=== PATIENT | male | born 1970 | race Caucasian/White ===

== ENCOUNTER → 2019-04-18 | Outpatient (CLI) | payer OTHER | LOC: RESP 19:40 | PROVIDERS: ATTEND Family Medicine | DX: G47.33 Obstructive sleep apnea (adult) (pediatric) (principal) ==

== ENCOUNTER 2019-05-03 11:24 | Emergency (ER) | payer OTHER ==
--- NOTE | 2019-05-03 11:25 | ER Report ---
History and Physical Time Seen By MD: 11:23 HPI/ROS CHIEF COMPLAINT: Dizziness HISTORY OF PRESENT ILLNESS: Patient is a 48-year-old male who states he was at a today sustaining initiated and suddenly became somewhat nauseous and dizzy. noted that he became pale and diaphoretic. The patient states that he had to go to the ground but he does not actually pass out. He denies having any chest pain or shortness of breath. Patient has no prior history for CHF. No prior cardiac history that he is aware of. He does follow with a primary care provider. Patient denies any significant past medical history. Patient currently denies any symptoms REVIEW OF SYSTEMS: Constitutional: [No fever, no chills.] Eyes: [No discharge.] ENT: [No sore throat.] Cardiovascular: [No chest pain, no palpitations.] Respiratory: [No cough, no shortness of breath.] Gastrointestinal: [No abdominal pain, no vomiting.] Genitourinary: [No hematuria.] Musculoskeletal: [No back pain.] Skin: [No rashes.] Neurological: [No headache.] Past Medical/Surgical History Patient denies any contributory past medical history Constitutional Vital Sign - Last 24 Hours 05/03/19 05/03/19 05/03/19 05/03/19 11:25 11:28 11:30 11:54 Temp 97.7 Pulse 60 68 Resp 18 24 B/P (MAP) 121/77 (92) 121/77 109/70 (83) Pulse Ox 92 91 05/03/19 05/03/19 05/03/19 05/03/19 12:29 12:30 12:35 13:00 Pulse 58 58 Resp 12 19 B/P (MAP) 109/55 (73) 117/70 (86) Pulse Ox 92 93 Physical Exam General/Constitutional: Patient is awake, alert, nontoxic and in no acute r espiratory distress. Head: Normocephalic and atraumatic. Eyes: Conjunctival clear, Pupils are equal and reactive to light. Extraocular muscles are intact and symmetrical. Sclera are clear and anicteric. Ears:External canals are clear. Tympanic membranes are clear with normal landmarks and light reflex. Nares: No rhinorrhea or bleeding. Turbinates are pink and moist. Oropharyngeal: Mucous membranes are moist. There is no pharyngeal erythema or exudate. There are no palatal petechiae. Uvula is midline and symmetrical. Neck: Supple, no adenopathy. Cardiovascular: Heart is regular rate and rhythm without audible murmurs, rubs or gallops. Pulmonary: Lungs are clear to auscultation bilaterally. There are no wheezes, rales, or rhonchi. Chest rise is symmetrical Abdomen: Soft, nontender, no guarding or peritoneal signs. Extremities: No gross deformities, No peripheral cyanosis. Able to move all 4 extremities. Neuro: Alert and oriented X3, Cranial nerves 2 thru 12 are intact and symmetrical. Skin: No rashes, skin is warm dry and well perfused. Medical Decision Making Data Points Result Diagram: 05/03/19 1137 05/03/19 1137 Laboratory Hematology Test 05/03/19 11:37 05/03/19 12:41 Red Blood Count 4.90 M/uL (4.00-5.60) Mean Corpuscular Volume 93.5 fL (80.0-96.0) Mean Corpuscular Hemoglobin 31.5 pg (26.0-33.0) Mean Corpuscular Hemoglobin Concent 33.7 g/dL (32.0-36.0) Red Cell Distribution Width 13.1 % (11.5-14.5) Mean Platelet Volume 8.3 fL (7.2-11.1) Neutrophils (%) (Auto) 60.9 % (39.4-72.5) Lymphocytes (%) (Auto) 26.4 % (17.6-49.6) Monocytes (%) (Auto) 10.1 % (4.1-12.4) Eosinophils (%) (Auto) 2.1 % (0.4-6.7) Basophils (%) (Auto) 0.5 % (0.3-1.4) Nucleated RBC Relative Count (auto) 0.0 /100WBC Neutrophils # (Auto) 3.4 K/uL (2.0-7.4) Lymphocytes # (Auto) 1.5 K/uL (1.3-3.6) Monocytes # (Auto) 0.6 K/uL (0.3-1.0) Eosinophils # (Auto) 0.1 K/uL (0.0-0.5) Basophils # (Auto) 0.0 K/uL (0.0-0.1) Nucleated RBC Absolute Count (auto) 0.00 K/uL Sodium Level 138 mmol/L (137-145) Potassium Level 4.2 mmol/L (3.5-5.0) Chloride Level 105 mmol/L (98-107) Carbon Dioxide Level 24 mmol/L (22-30) Blood Urea Nitrogen 21 mg/dl (9-21) Creatinine 1.20 mg/dl (0.66-1.25) Glomerular Filtration Rate Calc > 60.0 Random Glucose 108 mg/dl (75-110) Calcium Level 9.5 mg/dl (8.4-10.2) Total Bilirubin 0.8 mg/dl (0.2-1.3) Aspartate Amino Transf (AST/SGOT) 26 U/L (0-35) Alanine Aminotransferase (ALT/SGPT) 41 U/L (0-56) Alkaline Phosphatase 57 U/L (0-126) Troponin I < 0.012 ng/ml Total Protein 6.9 g/dl (6.3-8.2) Albumin 4.0 g/dl (3.5-5.0) Urine Color Yellow Urine Clarity Clear Urine pH 6.0 pH (4.8-9.5) Urine Specific [place] 1.027 Urine Protein Negative mg/dL (NEGATIVE) Urine Glucose (UA) Negative mg/dL (NEGATIVE) Urine Ketones Trace mg/dL (NEGATIVE) Urine Blood Negative (NEGATIVE) Urine Nitrite Negative (NEGATIVE) Urine Bilirubin Negative (NEGATIVE) Urine Urobilinogen 0.2 mg/dL (0.2-1.9) Urine Leukocyte Esterase Negative (NEGATIVE) Urine RBC None /HPF (0-2/HPF) Urine WBC 1 /HPF (0-5/HPF) Urine Squamous Epithelial Cells Few /LPF (</=FEW) Urine Bacteria Negative /HPF (NONE-FEW) Urine Mucus Few /HPF (NONE-FEW) Chemistry Test 05/03/19 11:37 05/03/19 12:41 White Blood Count 5.6 k/uL (4.5-11.0) Red Blood Count 4.90 M/uL (4.00-5.60) Hemoglobin 15.4 g/dL (14.0-18.0) Hematocrit 45.8 % (42.0-52.0) Mean Corpuscular Volume 93.5 fL (80.0-96.0) Mean Corpuscular Hemoglobin 31.5 pg (26.0-33.0) Mean Corpuscular Hemoglobin Concent 33.7 g/dL (32.0-36.0) Red Cell Distribution Width 13.1 % (11.5-14.5) Platelet Count 250 K/uL (150-450) Mean Platelet Volume 8.3 fL (7.2-11.1) Neutrophils (%) (Auto) 60.9 % (39.4-72.5) Lymphocytes (%) (Auto) 26.4 % (17.6-49.6) Monocytes (%) (Auto) 10.1 % (4.1-12.4) Eosinophils (%) (Auto) 2.1 % (0.4-6.7) Basophils (%) (Auto) 0.5 % (0.3-1.4) Nucleated RBC Relative Count (auto) 0.0 /100WBC Neutrophils # (Auto) 3.4 K/uL (2.0-7.4) Lymphocytes # (Auto) 1.5 K/uL (1.3-3.6) Monocytes # (Auto) 0.6 K/uL (0.3-1.0) Eosinophils # (Auto) 0.1 K/uL (0.0-0.5) Basophils # (Auto) 0.0 K/uL (0.0-0.1) Nucleated RBC Absolute Count (auto) 0.00 K/uL Glomerular Filtration Rate Calc > 60.0 Calcium Level 9.5 mg/dl (8.4-10.2) Total Bilirubin 0.8 mg/dl (0.2-1.3) Aspartate Amino Transf (AST/SGOT) 26 U/L (0-35) Alanine Aminotransferase (ALT/SGPT) 41 U/L (0-56) Alkaline Phosphatase 57 U/L (0-126) Troponin I < 0.012 ng/ml Total Protein 6.9 g/dl (6.3-8.2) Albumin 4.0 g/dl (3.5-5.0) Urine Color Yellow Urine Clarity Clear Urine pH 6.0 pH (4.8-9.5) Urine Specific [place] 1.027 Urine Protein Negative mg/dL (NEGATIVE) Urine Glucose (UA) Negative mg/dL (NEGATIVE) Urine Ketones Trace mg/dL (NEGATIVE) Urine Blood Negative (NEGATIVE) Urine Nitrite Negative (NEGATIVE) Urine Bilirubin Negative (NEGATIVE) Urine Urobilinogen 0.2 mg/dL (0.2-1.9) Urine Leukocyte Esterase Negative (NEGATIVE) Urine RBC None /HPF (0-2/HPF) Urine WBC 1 /HPF (0-5/HPF) Urine Squamous Epithelial Cells Few /LPF (</=FEW) Urine Bacteria Negative /HPF (NONE-FEW) Urine Mucus Few /HPF (NONE-FEW) Urinalysis Test 05/03/19 12:41 Urine Color Yellow Urine Clarity Clear Urine pH 6.0 pH (4.8-9.5) Urine Specific [place] 1.027 Urine Protein Negative mg/dL (NEGATIVE) Urine Glucose (UA) Negative mg/dL (NEGATIVE) Urine Ketones Trace mg/dL (NEGATIVE) Urine Blood Negative (NEGATIVE) Urine Nitrite Negative (NEGATIVE) Urine Bilirubin Negative (NEGATIVE) Urine Urobilinogen 0.2 mg/dL (0.2-1.9) Urine Leukocyte Esterase Negative (NEGATIVE) Urine RBC None /HPF (0-2/HPF) Urine WBC 1 /HPF (0-5/HPF) Urine Squamous Epithelial Cells Few /LPF (</=FEW) Urine Bacteria Negative /HPF (NONE-FEW) Urine Mucus Few /HPF (NONE-FEW) EKG/Imaging EKG Interpretation EKG shows sinus bradycardia with 59 bpm 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 COMPARISON: None. TECHNIQUE: Contiguous axial images were obtained from the skull base to the vertex without intravenous contrast. Sagittal and coronal reformatted images are also submitted. One of the following dose optimization techniques was utilized in the performance of this exam: Automated exposure control; adjustment of the mA and/or kV according to the patient's size; or use of an iterative reconstruction technique. Specific details can be referenced in the facility's radiology CT exam operational policy. FINDINGS: Brain volume: Normal. Ventricles: Normal. Acute ischemic changes: None. Hemorrhage: No acute intracranial hemorrhage. Masses/edema: Simple appearing 6 mm pineal cyst. No mass effect on adjacent structures. Rosas-white: Negative. White matter: Normal. Vessels: Negative. Extra-axial: Negative. Calvarium/scalp: Negative. Skull base/visualized face: Negative. Visualized sinuses/orbits: Mild nasal septal deviation to the right. IMPRESSION: 1. No acute hemorrhage or CT evidence of acute infarct. 2. 6 mm simple appearing pineal cyst is likely an incidental, benign finding. No mass effect on adjacent structures. Report Dictated By: Devorah Tinoco MD at 05/03/2019 12:16 PM Report E-Signed By: Devorah Tinoco MD at 05/03/2019 12:33 PM WSN:[id number] ED Course/Re-evaluation ED Course 05/03/2019 12:53:05 pm patient remained symptom-free during the emergency department visit. Workup including a CT scan EKG and blood work is all unremarkable. We will see if we can set the patient up for a Holter monitor today Decision to Disposition Date: May 03, 2019 Decision to Disposition Time: 12:59 Depart Departure Latest Vital Signs Vital Signs Date Time Temp Pulse Resp B/P (MAP) Pulse Ox O2 Delivery O2 Flow Rate FiO2 05/03/19 13:00 117/70 (86) 05/03/19 12:35 58 19 93 05/03/19 11:28 97.7 Impression: Primary Impression: Near syncope Condition: Condition Unchanged Disposition: HOME OR SELF-CARE Referrals: JACKY RUSSO DO (PCP) 2 Weeks for follow up of dizzy spells Patient Instructions: Near Syncope (ED) SHON GOMEZ MD May 03, 2019 11:25
[2019-05-03] MEDS ORDERED: NS(*) 0.9% 1000 ML BAG 1,000 ML IV ONE (11:39)
[2019-05-03 12:02] LABS: PLATELET COUNT, AUTOMATED 250 K/uL (150-450)
--- NOTE | 2019-05-03 12:39 | RADIOLOGY IMAGING REPORT ---
FACILITY: [facility] PATIENT NAME: Crispin Mason : 1970 MR: [id number] V: [id number] EXAM DATE: ORDERING PHYSICIAN: SHON GOMEZ TECHNOLOGIST: Location: Patient: Crispin Mason : 1970 Visit/Account:[id number] Date of Sevice: 05/03/2019 EXAMINATION: CT head without IV contrast HISTORY: Dizziness, blurred vision. COMPARISON: None. TECHNIQUE: Contiguous axial images were obtained from the skull base to the vertex without intraven ous contrast. Sagittal and coronal reformatted images are also submitted. One of the following dose optimization techniques was utilized in the performance of this exam: Autom ated exposure control; adjustment of the mA and/or kV according to the patient's size; or use of an i terative reconstruction technique. Specific details can be referenced in the facility's radiology C T exam operational policy. FINDINGS: Brain volume: Normal. Ventricles: Normal. Acute ischemic changes: None. Hemorrhage: No acute intracranial hemorrhage. Masses/edema: Simple appearing 6 mm pineal cyst. No mass effect on adjacent structures. Rosas-white: Negative. White matter: Normal. Vessels: Negative. Extra-axial: Negative. Calvarium/scalp: Negative. Skull base/visualized face: Negative. Visualized sinuses/orbits: Mild nasal septal deviation to the right. IMPRESSION: 1. No acute hemorrhage or CT evidence of acute infarct. 2. 6 mm simple appearing pineal cyst is likely an incidental, benign finding. No mass effect on adjac ent structures. Report Dictated By: Devorah Tinoco MD at 05/03/2019 12:16 PM Report E-Signed By: Devorah Tinoco MD at 05/03/2019 12:33 PM WSN:[id number]
[2019-05-03 13:00] VITALS: BP 117/70
--- NOTE | 2019-05-03 16:14 | EKG ---
FACILITY: [facility] - [place] PATIENT NAME: KAMAR GAFFNEY : [id number] MR: [id number] V: [id number] EXAM DATE: ORDERING PHYSICIAN: SHON GOMEZ TECHNOLOGIST: LEVI Test Reason : DIZZINESS Blood Pressure : / mmHG Vent. Rate : 059 BPM Atrial Rate : 059 BPM P-R Int : 138 ms QRS Dur : 090 ms QT Int : 414 ms P-R-T Axes : 016 021 029 degrees QTc Int : 409 ms Sinus bradycardia Otherwise normal ECG No previous ECGs available Confirmed by KATHIE UNDERWOOD ([id number]) on 05/04/2019 6:48:41 AM Referred By: JASON Confirmed By:KATHIE UNDERWOOD
--- NOTE | 2019-05-05 17:24 | RT HOLTER TEST ---
FACILITY: [facility] PATIENT NAME: KAMAR GAFFNEY : [id number] MR: [id number] V: [id number] EXAM DATE: ORDERING PHYSICIAN: SHON GOMEZ TECHNOLOGIST: LEVI Hook-up date: 2019-05-03 13:24:00 Duration: 23:56:00 Test Indications: DIZZY Medications: N/A 82676 QRS complexes 7 Ventricular ectopics which represent <1 % of total QRS comp. 33 Supraventricular ectopics which represent <1 % of total QRS comp. * Paced QRS complexes which represent % of total QRS comp. VENTRICULAR ECTOPY 3 Isolated 0 Bigeminal Cycles 0 Couplets 1 Runs 4 Beats in Runs 4 Beats LONGEST at 139 BPM at 22:58:02 2019-05-03 4 Beats FASTEST at 139 BPM at 22:58:02 2019-05-03 SUPRAVENTRICULAR ECTOPY 33 Isolated 0 Couplets 0 Runs 0 Beats in Runs * Beats LONGEST at * BPM at :: -- * Beats FASTEST at * BPM at :: -- HEART RATES 42 MIN at 05:58:48 2019-05-04 67 AVG 135 MAX at 14:41:48 2019-05-03 LONGEST RR 1.536 secs at 06:26:45 2019-05-04 S-T LEVELS Channel 1 -12.800 mm MIN at 13:24:00 2019-05-03 -12.800 mm MAX at 13:24:00 2019-05-03 Channel 2 -12.800 mm MIN at 13:24:00 2019-05-03 -12.800 mm MAX at 13:24:00 2019-05-03 Channel 3 -12.800 mm MIN at 13:24:00 2019-05-03 -12.800 mm MAX at 13:24:00 2019-05-03 There were no symptoms reported during the test. He was predominantly in a sinus rhythm. He did hav e one 2 beat run of ventricular ectopy (VE) at a rate of 139 beats per minute. The patient had rare VE and supraventricular ectopy. Confirmed by IQRA FLORIAN ([id number]) on 05/05/2019 5:22:00 PM Referred By: Overread By: IQRA FLORIAN
== END 2019-05-03 13:15 | disposition home or self-care (01) ==
LOC: ER 11:30
DX: R55 Syncope and collapse (principal); H53.8 Other visual disturbances
CPT/HCPCS: 70450; 81001; 84484; 85025; 93005; 93225; 96360; 99284; J7030; 82040; 82247; 82310; 82374; 82435; 82565; 82947; 84075; 84132; 84155; 84295; 84450; 84460; 84520; 93226